=== PATIENT | female | born 1985 | race African-American/Black ===

== ENCOUNTER 2022-03-07 13:04 | Inpatient (IN) | payer OTHER ==
[2022-03-07 14:19] VITALS: BMI 43.2
[2022-03-07] MEDS ORDERED: IBUPROFEN 400 MG TABLET (FP) PO PRN (15:00)
[2022-03-07] MEDS ORDERED: MAGNESIUM CITRATE 300 ML BOTTLE PO PRN (15:00)
[2022-03-07] MEDS ORDERED: LOPERAMIDE HCL 2 MG CAPSULE PO PRN (15:00)
[2022-03-07] MEDS ORDERED: MAGNESIUM HYDROX 2400MG/30ML ORAL SUSPENSION 30 ML CUP PO PRN (15:00)
[2022-03-07] MEDS ORDERED: P-EPHED 60MG/TRIPROLIDI 2.5MG TABLET PO PRN (15:00)
[2022-03-07] MEDS ORDERED: MAG HYDROX/AL HYDROX/SIMETH 30 ML UNIT-DOSE CUP PO PRN (15:00)
[2022-03-07] MEDS ORDERED: guaiFENesin 200 MG/10 ML 10 ML UNIT-DOSE CUPS PO PRN (15:00)
[2022-03-07] MEDS: hydrOXYzine PAMOATE 25 MG CAPSULE (FP) PO SCH ×2 (22:35→22:36)
[2022-03-07] MEDS: NICOTINE 14 MG/24 HOURS TOPICAL PATCH TD SCH (22:35)
[2022-03-07] MEDS: THIAMINE HCL 100 MG TABLET (FP) PO SCH (22:36)
[2022-03-07] MEDS: MELATONIN 5 MG TABLETS PO SCH (22:36)
[2022-03-08] MEDS: hydrOXYzine PAMOATE 25 MG CAPSULE (FP) PO SCH ×5 (06:29→21:15)
[2022-03-08] MEDS ORDERED: TUBERCULIN PPD 5 TU/0.1ML VIAL ID ONE (07:07)
[2022-03-08 10:14] LABS: PH,URINE 5.5 (5.0-8.0); URINE APPEARANCE CLEAR; URINE BILIRUBIN NEGATIVE (NEGATIVE); URINE COLOR YELLOW; URINE GLUCOSE (UA) NEGATIVE (NEGATIVE); URINE KETONE NEGATIVE (NEGATIVE); URINE LEUK ESTERASE NEGATIVE (NEGATIVE); URINE NITRITE NEGATIVE (NEGATIVE); URINE PROTEIN NEGATIVE (NEGATIVE); URINE UROBILINOGEN 0.2 mg/dL (0.2-1.0)
[2022-03-08 11:12] LABS: CALCIUM 9.2 mg/dL (8.5-10.1)
[2022-03-08 11:13] LABS: ALBUMIN 3.5 g/dl (3.4-5.0); BLOOD UREA NITROGEN 11.6 mg/dL (7-18)
[2022-03-08 11:16] LABS: CREATININE 0.8 mg/dL (0.55-1.3)
[2022-03-08 11:18] LABS: BILIRUBIN,TOTAL 0.1 mg/dL (0.2-1); TOT PROT 6.8 g/dl (6.4-8.2)
[2022-03-08] MEDS: NICOTINE 14 MG/24 HOURS TOPICAL PATCH TD SCH ×2 (11:18→13:16)
[2022-03-08 11:19] LABS: HEMATOCRIT 34.9 % (32.4-45.2); HEMOGLOBIN 11.4 GM/dL (10.7-15.3); MCH 26.8 pg (25.7-33.7); MCHC 32.5 g/dl (32.0-36.0); MEAN CELL VOLUME 82.4 fl (80-96); MEAN PLT VOLUME 8.2 fl (7.5-11.1); PLATELET COUNT 208 10^3/uL (134-434); RBC 4.23 M/mm3 (3.60-5.2); RDW 17.2 % (11.6-15.6); WHITE BLOOD COUNT 5.1 K/mm3 (4.0-10.0)
[2022-03-08] MEDS: PRENATAL VITAMINS W/ FOLIC ACID TABLET (FP) PO SCH (11:19)
[2022-03-08 11:38] LABS: SYPHILIS W/ RPR CONF NON-REACTIVE (NONREACTIVE)
[2022-03-08] MEDS: THIAMINE HCL 100 MG TABLET (FP) PO SCH (21:15)
[2022-03-08] MEDS: MELATONIN 5 MG TABLETS PO SCH (21:15)
[2022-03-08] MEDS: OLANZapine 7.5 MG TABLET PO SCH (21:16)
[2022-03-09] MEDS: hydrOXYzine PAMOATE 25 MG CAPSULE (FP) PO SCH ×5 (07:37→21:12)
[2022-03-09] MEDS ORDERED: OLANZapine 5 MG TABLET PO SCH (10:00)
[2022-03-09] MEDS: PRENATAL VITAMINS W/ FOLIC ACID TABLET (FP) PO SCH (11:12)
[2022-03-09] MEDS: NICOTINE 14 MG/24 HOURS TOPICAL PATCH TD SCH (11:12)
[2022-03-09] MEDS: THIAMINE HCL 100 MG TABLET (FP) PO SCH (21:12)
[2022-03-09] MEDS: MELATONIN 5 MG TABLETS PO SCH (21:12)
[2022-03-09] MEDS: OLANZapine 7.5 MG TABLET PO SCH (21:12)
[2022-03-10] MEDS: hydrOXYzine PAMOATE 25 MG CAPSULE (FP) PO SCH ×2 (07:00→10:17)
[2022-03-10] MEDS: NICOTINE 14 MG/24 HOURS TOPICAL PATCH TD SCH (10:16)
[2022-03-10] MEDS: PRENATAL VITAMINS W/ FOLIC ACID TABLET (FP) PO SCH (10:17)
[2022-03-10] MEDS: NICOTINE POLACRILEX 4 MG GUM BUC PRN (17:11)
[2022-03-10] MEDS: NICOTINE 10 MG CARTRIDGE (INHALER) IH PRN (17:11)
[2022-03-10] MEDS: OLANZapine 7.5 MG TABLET PO SCH (21:11)
[2022-03-10] MEDS: MELATONIN 5 MG TABLETS PO SCH (21:11)
[2022-03-10] MEDS: THIAMINE HCL 100 MG TABLET (FP) PO SCH (21:11)
[2022-03-11] MEDS: NICOTINE 14 MG/24 HOURS TOPICAL PATCH TD SCH (09:45)
[2022-03-11] MEDS: PRENATAL VITAMINS W/ FOLIC ACID TABLET (FP) PO SCH (09:45)
[2022-03-11] MEDS: NICOTINE POLACRILEX 4 MG GUM BUC PRN (09:46)
[2022-03-11] MEDS: ACETAMINOPHEN 325 MG TABLET (FP) PO PRN ×2 (13:29→19:31)
[2022-03-11] MEDS: OLANZapine 7.5 MG TABLET PO SCH (21:11)
[2022-03-11] MEDS: THIAMINE HCL 100 MG TABLET (FP) PO SCH (21:12)
[2022-03-11] MEDS: MELATONIN 5 MG TABLETS PO SCH (21:12)
[2022-03-11] MEDS: hydrOXYzine PAMOATE 25 MG CAPSULE (FP) PO PRN (21:13)
[2022-03-12] MEDS: ACETAMINOPHEN 325 MG TABLET (FP) PO PRN (08:40)
[2022-03-12] MEDS: NICOTINE 14 MG/24 HOURS TOPICAL PATCH TD SCH (09:36)
[2022-03-12] MEDS: PRENATAL VITAMINS W/ FOLIC ACID TABLET (FP) PO SCH (09:36)
[2022-03-12] MEDS: OLANZapine 7.5 MG TABLET PO SCH (21:21)
[2022-03-12] MEDS: THIAMINE HCL 100 MG TABLET (FP) PO SCH (21:21)
[2022-03-12] MEDS: MELATONIN 5 MG TABLETS PO SCH (21:21)
[2022-03-12] MEDS: NICOTINE 10 MG CARTRIDGE (INHALER) IH PRN (21:23)
[2022-03-12] MEDS: hydrOXYzine PAMOATE 25 MG CAPSULE (FP) PO PRN (23:09)
[2022-03-13] MEDS: PRENATAL VITAMINS W/ FOLIC ACID TABLET (FP) PO SCH (10:40)
[2022-03-13] MEDS: NICOTINE 14 MG/24 HOURS TOPICAL PATCH TD SCH (10:40)
[2022-03-13] MEDS: ACETAMINOPHEN 325 MG TABLET (FP) PO PRN ×2 (10:41→22:27)
[2022-03-13] MEDS: MELATONIN 5 MG TABLETS PO SCH (21:21)
[2022-03-13] MEDS: THIAMINE HCL 100 MG TABLET (FP) PO SCH (21:21)
[2022-03-13] MEDS: OLANZapine 7.5 MG TABLET PO SCH (21:21)
[2022-03-13] MEDS: hydrOXYzine PAMOATE 25 MG CAPSULE (FP) PO PRN (21:21)
[2022-03-14] MEDS: NICOTINE 14 MG/24 HOURS TOPICAL PATCH TD SCH (10:52)
[2022-03-14] MEDS: PRENATAL VITAMINS W/ FOLIC ACID TABLET (FP) PO SCH (10:52)
[2022-03-14] MEDS: ACETAMINOPHEN 325 MG TABLET (FP) PO PRN ×2 (11:31→21:31)
[2022-03-14] MEDS: NICOTINE 10 MG CARTRIDGE (INHALER) IH PRN (19:16)
[2022-03-14] MEDS: OLANZapine 7.5 MG TABLET PO SCH (21:30)
[2022-03-14] MEDS: THIAMINE HCL 100 MG TABLET (FP) PO SCH (21:31)
[2022-03-14] MEDS: MELATONIN 5 MG TABLETS PO SCH (21:31)
[2022-03-14] MEDS: hydrOXYzine PAMOATE 25 MG CAPSULE (FP) PO PRN (21:32)
[2022-03-15] MEDS: NICOTINE 14 MG/24 HOURS TOPICAL PATCH TD SCH (10:19)
[2022-03-15] MEDS: PRENATAL VITAMINS W/ FOLIC ACID TABLET (FP) PO SCH (10:19)
[2022-03-15] MEDS: NICOTINE 10 MG CARTRIDGE (INHALER) IH PRN (16:40)
[2022-03-15] MEDS: MELATONIN 5 MG TABLETS PO SCH (22:22)
[2022-03-15] MEDS: OLANZapine 7.5 MG TABLET PO SCH (22:22)
[2022-03-15] MEDS: THIAMINE HCL 100 MG TABLET (FP) PO SCH (22:23)
[2022-03-15] MEDS: hydrOXYzine PAMOATE 25 MG CAPSULE (FP) PO PRN (22:23)
[2022-03-16] MEDS: PRENATAL VITAMINS W/ FOLIC ACID TABLET (FP) PO SCH (10:47)
[2022-03-16] MEDS: NICOTINE 14 MG/24 HOURS TOPICAL PATCH TD SCH (10:47)
[2022-03-16] MEDS: NICOTINE 10 MG CARTRIDGE (INHALER) IH PRN (17:32)
[2022-03-16] MEDS: THIAMINE HCL 100 MG TABLET (FP) PO SCH (21:58)
[2022-03-16] MEDS: hydrOXYzine PAMOATE 25 MG CAPSULE (FP) PO PRN (21:58)
[2022-03-16] MEDS: OLANZapine 7.5 MG TABLET PO SCH (21:58)
[2022-03-16] MEDS: MELATONIN 5 MG TABLETS PO SCH (21:58)
[2022-03-17] MEDS: ACETAMINOPHEN 325 MG TABLET (FP) PO PRN ×2 (00:02→06:41)
[2022-03-17 07:49] VITALS: BP 119/78; PULSE 96; TEMP 97.1
== END 2022-03-17 09:45 | disposition home or self-care (01) | DRG 895 ==
LOC: YASAS 13:04 → Y5N 19:15
PROVIDERS: ADMIT Allergy & Immunology; ATTEND Psychiatry & Neurology Pain Medicine
PROC: HZ42ZZZ Group Counseling for Substance Abuse Treatment, Cognitive-Behavioral (ICD-10-PCS; principal; 2022-03-07)
DX: F14.20 Cocaine dependence, uncomplicated (principal); Z68.41 Body mass index [BMI] 40.0-44.9, adult; F12.20 Cannabis dependence, uncomplicated; F10.10 Alcohol abuse, uncomplicated; F17.210 Nicotine dependence, cigarettes, uncomplicated; F20.9 Schizophrenia, unspecified; E66.01 Morbid (severe) obesity due to excess calories; Z88.8 Allergy status to other drugs, medicaments and biological substances
CPT/HCPCS: 36415; 80053; 81003; 81025; 82962; 85027; 86780; 86803; 93005; 93010; C9803-CS; U0003; U0005